=== PATIENT | male | born 1980 | race African-American/Black ===

== ENCOUNTER 2017-10-08 07:04 | Emergency (ER) | payer OTHER ==
[2017-10-08 08:19] LABS: Absolute Lymphocytes (CBC) 1.5 K/uL (0.7-4.9); Absolute Monocytes 0.4 K/uL (0.1-1.3); Basophils % 0.8 % (0-1.3); Hematocrit 43.9 % (39.6-49.0); Lymphocytes % 30.8 % (15.3-44.8); MCH 30.3 pg (27.0-35.0); MCV 92.2 fL (80-100); MPV 6.8 fL (7.6-11.3); Monocytes % 7.5 % (3.3-12.3); RBC Red Blood Cell Count 4.76 M/uL (4.33-5.43)
[2017-10-08 08:32] LABS: Protime INR 0.9
[2017-10-08 08:33] LABS: Bicarbonate 26 mEq/L (21-31); Glucose Level 109 mg/dL (65-120); Potassium 3.8 mEq/L (3.6-5.0); Sodium Level 139 mEq/L (135-145)
[2017-10-08 08:39] LABS: ALT/SGPT 45 IU/L (10-60); AST/SGOT 33 IU/L (10-42); Albumin 4.2 g/dL (3.2-5.5); Alkaline Phosphatase 71 IU/L (42-121); BUN Blood Urea Nitrogen 14 mg/dL (6-20); Bilirubin Direct 0.1 mg/dL (0-0.2); Bilirubin Total 0.4 mg/dL (0.3-1.2); Glomerular Filtration Rate 85 mL/min (=/>90); Protein, Total 7.1 g/dL (6.0-8.3)
[2017-10-08 08:48] LABS: Alcohol Serum/Plasma < 10 mg/dl; Salicylates Level < 4.0 mg/dl (<30)
[2017-10-08 11:36] LABS: Barbiturates NEGATIVE; Benzodiazepines NEGATIVE; Cocaine NEGATIVE; METHAMPHETAM NEGATIVE; Opiates NEGATIVE; Phencyclidine NEGATIVE; THC Cannibis NEGATIVE
[2017-10-08 11:59] LABS: Urine Blood TRACE (NEG); Urine Glucose NEGATIVE (NEG); Urine Protein NEGATIVE (NEG); Urine Specific Gravity 1.015 (1.005-1.030)
--- NOTE | 2017-10-08 16:27 | EKG ---
Test Date: 2017-10-08 Test Time: 08:31:35 Timing Inspector: TEOFILO MEASUREMENT RESULTS: Intervals: Rate: 53 NM: 124 QRSD: 86 QT: 396 QTc: 371 [place]more: P: 54 NM: 124 QRS: 57 T: 52 INTERPRETIVE STATEMENTS: Sinus bradycardia Otherwise normal ECG No previous ECG available for comparison Electronically Signed On 10-08-17 16:24:57 CDT by Doe Mcintyre
--- NOTE | 2017-10-08 17:51 | ER ---
Nurse's Notes [facility] Name: Anupam Alejo Age: 36 yrs Sex: Male : 1980 Arrival Date: 10/08/2017 Time: 07:06 Bed 5 Private MD: Diagnosis: Suicidal ideations Presentation: 10/08 07:12 Presenting complaint: Patient states: "I've been going through too much for about a lk1 month. 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 My has MS. I had to uproot my life from [place], [place]. [facility]. I feel like since no one can help me, I should give up. I had a good life before CPS took my kids and I don't know how to help my . I need some real help." Denies attempts. States he will hang himself or jump off something high. Transition of care: patient was not received from another setting of care. Onset of symptoms was September 10, 2017. Care prior to arrival: None. 07:12 Method Of Arrival: Ambulatory lk1 07:12 Acuity: DARLYN 2 lk1 Triage Assessment: 07:17 General: Appears in no apparent distress. Behavior is calm, cooperative, appropriate lk1 for age. Pain: Complains of pain in "all over" Pain currently is 10 out of 10 on a pain scale. Historical: - Allergies: 07:17 No Known Allergies; lk1 - PMHx: 07:17 PTSD; Chronic pain; lk1 - PSHx: 07:17 None; lk1 - Immunization history:: Adult Immunizations up to date. - Social history:: Smoking status: Patient/guardian denies using tobacco, Patient/guardian denies using alcohol, street drugs. - Family history:: not pertinent. - Hospitalizations: : No recent hospitalization is reported. Screenin:34 Abuse screen: Denies threats or abuse. Denies injuries from another. Nutritional sg screening: No deficits noted. Tuberculosis screening: No symptoms or risk factors identified. Never had TB. Fall Risk None identified. Assessment: 07:30 General: Appears in no apparent distress. well groomed, well developed, well nourished, sg Behavior is calm, cooperative, appropriate for age. Pain: Denies pain. Neuro: Level of Consciousness is awake, alert, obeys commands, Oriented to person, place, time, Mobile Unit Assistant are equal bilaterally Moves all extremities. Full function Speech is normal, Facial symmetry appears normal, Pupils are PERRLA. Cardiovascular: Heart tones S1 S2 present Capillary refill is brisk in bilateral fingers Patient's skin is warm and dry. Chest pain is denied. Respiratory: Airway is patent Respiratory effort is even, unlabored, Respiratory pattern is regular, symmetrical, Breath sounds are clear Denies cough, labored breathing, pain with respiration. GI: No signs and/or symptoms were reported involving the gastrointestinal system. : No signs and/or symptoms were reported regarding the genitourinary system. EENT: No signs and/or symptoms were reported regarding the EENT system. Derm: Skin is intact, is healthy with good turgor, Skin is dry, Skin is normal, Skin temperature is warm. Musculoskeletal: No signs and/or symptoms reported regarding the musculoskeletal system. 08:30 Reassessment: Patient appears in no apparent distress at this time. Patient and/or sg family updated on plan of care and expected duration. Pain level reassessed. pt laying left side lying position with knees to chest, pt remains covered, resp even unlabored, srx2, bed in low and locked position, door remains open and a sitter remains with the patient. 09:30 Reassessment: Patient appears in no apparent distress at this time. Patient and/or sg family updated on plan of care and expected duration. Pain level reassessed. pt lying right side, remains covered at this time, eyes closed, resp even and unlabored, no s/s of distress noted, pt awakens easily to verbal stimuli, awaiting new orders at this time, a sitter remains with the pt, will continue to monitor. 12:10 Reassessment: Patient appears in no apparent distress at this time. Patient and/or sg family updated on plan of care and expected duration. Pain level reassessed. pt sitting upright in bed at this time, awaiting a sandwich to be delivered from the cafeteria at this time d/t not liking the tray that was offered, pt cooperative, calm at this time, awaiting new orders, a sitter remains with the pt. 12:30 Reassessment: Patient appears in no apparent distress at this time. Patient and/or sg family updated on plan of care and expected duration. Pain level reassessed. no new orders received at this time, awaiting sandwich to be delivered from dietary at this time. 13:30 Reassessment: Patient appears in no apparent distress at this time. Patient and/or sg family updated on plan of care and expected duration. Pain level reassessed. Patient is alert, oriented x 3, equal unlabored respirations, skin warm/dry/pink. pt eating sandwich, is thankful at this time, sitter remains with pt, pt ambulated to the ER restroom at this time, no problems encountered pt assisted back to bed, will continue to monitor Patient states symptoms have not improved. 14:30 Reassessment: Patient appears in no apparent distress at this time. Patient and/or sg family updated on plan of care and expected duration. Pain level reassessed. Patient is alert, oriented x 3, equal unlabored respirations, skin warm/dry/pink. pt requesting update on POC, updated on pt transfer status, pt stated understanding, will continue to monitor Patient states symptoms have not improved. 17:06 Reassessment: Patient appears in no apparent distress at this time. Patient and/or sg family updated on plan of care and expected duration. Pain level reassessed. Patient is alert, oriented x 3, equal unlabored respirations, skin warm/dry/pink. pt given a regular diet tray at this time, pt tolerated well, no assistance required at this time, will continue to monitor. 18:00 Reassessment: Pt laying in bed with eyes closed, respirations even and unlabored, no jl7 signs of distress noted. 19:00 Reassessment: Patient appears in no apparent distress at this time. Patient and/or jd3 family updated on plan of care and expected duration. Pain level reassessed. Patient is alert, oriented x 3, equal unlabored respirations, skin warm/dry/pink. 20:02 Reassessment: Patient appears in no apparent distress at this time. Patient and/or jd3 family updated on plan of care and expected duration. Pain level reassessed. Patient is alert, oriented x 3, equal unlabored respirations, skin warm/dry/pink. 20:56 Reassessment: [facility] in [facility] , Rigoberto MARIEE received report. ao 21:43 Reassessment: Patient appears in no apparent distress at this time. Patient and/or jd3 family updated on plan of care and expected duration. Pain level reassessed. Patient is alert, oriented x 3, equal unlabored respirations, skin warm/dry/pink. 21:59 Reassessment: Patient appears in no apparent distress at this time. Patient and/or jd3 family updated on plan of care and expected duration. Pain level reassessed. Patient is alert, oriented x 3, equal unlabored respirations, skin warm/dry/pink. report given to SUSIE. Psych: 07:15 Subjective: Patient's mood is angry, hopeless, Delusions are denied, Hallucinations are sg denied Having thoughts of suicide. Plan for suicide is to jump from a really high place, or to hang himself. Objective: Patient is cooperative, Speech is normal, Affect is appropriate. Interventions: Removed personal items and placed in bag. Patient placed in hospital gown. Suicide Risk Assessment: Sad Person Scale: Sex of patient: Male: Score 1 point. Age of patient: Score 0 point if patient falls outside of specified age parameters. Depression: Score 1 point if signs of depression are present. Previous Attempt: Score 0 point if patient has not previously attempted suicide. Substance Abuse: Score 0 point if patient does not abuse alcohol or drugs. Rational Thinking: Score 0 point if patient has rational thinking. Social Support: Score 0 if social support is present/available. Organized Plan: Score 1 point if patient had a plan in place. Relationship: Score 0 point if patient has a spouse or domestic partner. Chronic Sickness: Score 1 point if patient has illness, chronic, debilitating, or severe. TOTAL POINTS: If total points are 3-4, proposed clinical action is close follow-up/consider hospitalization. Safety Checks: Personal items have been removed. Door is open. No visitors are present at this time. sitter remains in room with patient. Pt denies substance abuse. 21:59 Commitment: Patient will be a voluntary commitment. Commitment papers completed. jd3 Vital Signs: 07:17 BP 129 / 87; Pulse 69; Resp 14; Temp 97.3(TE); Pulse Ox 99% on R/A; Weight 79.38 kg lk1 (R); Height 5 ft. 11 in. (180.34 cm) (R); Pain 10/10; 09:08 BP 120 / 87; Pulse 66; Resp 16; Pulse Ox 99% on R/A; Pain 10/10; sg 12:30 BP 118 / 77; Pulse 59; Resp 16; Pulse Ox 100% on R/A; sg 14:30 BP 120 / 72; Pulse 60; Resp 14 S; Pulse Ox 99% on R/A; sg 20:01 BP 119 / 84; Pulse 71; Resp 18 S; Pulse Ox 99% on R/A; jd3 21:57 BP 119 / 82; Pulse 63; Resp 17 S; Pulse Ox 98% on R/A; jd3 07:17 Body Mass Index 24.41 (79.38 kg, 180.34 cm) lk1 09:08 pain that is chronic, per the patient sg ED Course: 07:06 Patient arrived in ED. ds1 07:15 Safety Checks: Personal items have been removed The door is open or patient has been sg placed in a hallway bed/chair. There are no family/friend visitors at this time. 07:16 Triage completed. lk1 07:19 Arm band placed on right wrist. lk1 07:21 Jake Ortega MD is Attending Physician. rn 07:30 Safety Checks: Personal items have been removed The door is open or patient has been sg placed in a hallway bed/chair. There are no family/friend visitors at this time. 07:30 Patient has correct armband on for positive identification. Bed in low position. Call jl7 light in reach. Side rails up X 1. Warm blanket given. 07:40 Initial lab(s) drawn, by ED staff, sent to lab. awaiting a urine specimen at this time. sg Inserted saline lock: 20 gauge in right antecubital area, using aseptic technique. Blood collected. IV inserted by biomass plant technician Cash. Patient maintains SpO2 saturation greater than 95% on room air. 07:45 Safety Checks: Personal items have been removed The door is open or patient has been sg placed in a hallway bed/chair. There are no family/friend visitors at this time. 08:00 Safety Checks: Personal items have been removed The door is open or patient has been sg placed in a hallway bed/chair. There are no family/friend visitors at this time. 08:15 Safety Checks: Personal items have been removed The door is open or patient has been sg placed in a hallway bed/chair. There are no family/friend visitors at this time. 08:26 Feng Escamilla, RN is Primary Nurse. sg 08:30 Safety Checks: Personal items have been removed The door is open or patient has been sg placed in a hallway bed/chair. There are no family/friend visitors at this time. 08:45 Safety Checks: Personal items have been removed The door is open or patient has been sg placed in a hallway bed/chair. There are no family/friend visitors at this time. 08:46 EKG done, by technical illustrations map inker. reviewed by Jake Ortega MD. tc 09:00 Safety Checks: Personal items have been removed The door is open or patient has been sg placed in a hallway bed/chair. There are no family/friend visitors at this time. 09:15 Safety Checks: Personal items have been removed The door is open or patient has been sg placed in a hallway bed/chair. There are no family/friend visitors at this time. 09:30 Safety Checks: Personal items have been removed The door is open or patient has been sg placed in a hallway bed/chair. There are no family/friend visitors at this time. 09:45 Safety Checks: Personal items have been removed The door is open or patient has been sg placed in a hallway bed/chair. There are no family/friend visitors at this time. 10:00 Safety Checks: Personal items have been removed The door is open or patient has been sg placed in a hallway bed/chair. There are no family/friend visitors at this time. 10:15 Safety Checks: Personal items have been removed The door is open or patient has been sg placed in a hallway bed/chair. There are no family/friend visitors at this time. 10:30 Safety Checks: Personal items have been removed The door is open or patient has been sg placed in a hallway bed/chair. There are no family/friend visitors at this time. 10:45 Safety Checks: Personal items have been removed The door is open or patient has been sg placed in a hallway bed/chair. There are no family/friend visitors at this time. 11:00 Safety Checks: Personal items have been removed The door is open or patient has been sg placed in a hallway bed/chair. There are no family/friend visitors at this time. 11:15 Safety Checks: Personal items have been removed The door is open or patient has been sg placed in a hallway bed/chair. There are no family/friend visitors at this time. 11:30 Safety Checks: Personal items have been removed The door is open or patient has been sg placed in a hallway bed/chair. There are no family/friend visitors at this time. 11:45 Safety Checks: Personal items have been removed The door is open or patient has been sg placed in a hallway bed/chair. There are no family/friend visitors at this time. 12:00 Safety Checks: Personal items have been removed The door is open or patient has been sg placed in a hallway bed/chair. There are no family/friend visitors at this time. 12:15 Safety Checks: Personal items have been removed The door is open or patient has been sg placed in a hallway bed/chair. There are no family/friend visitors at this time. 12:30 Safety Checks: Personal items have been removed The door is open or patient has been sg placed in a hallway bed/chair. There are no family/friend visitors at this time. 12:45 Safety Checks: Personal items have been removed The door is open or patient has been sg placed in a hallway bed/chair. There are no family/friend visitors at this time. 13:00 Safety Checks: Personal items have been removed The door is open or patient has been sg placed in a hallway bed/chair. There are no family/friend visitors at this time. 13:15 Safety Checks: Personal items have been removed The door is open or patient has been sg placed in a hallway bed/chair. There are no family/friend visitors at this time. 13:30 Safety Checks: Personal items have been removed The door is open or patient has been sg placed in a hallway bed/chair. There are no family/friend visitors at this time. 13:45 Safety Checks: Personal items have been removed The door is open or patient has been sg placed in a hallway bed/chair. There are no family/friend visitors at this time. 14:00 Safety Checks: Personal items have been removed The door is open or patient has been sg placed in a hallway bed/chair. There are no family/friend visitors at this time. 14:15 Safety Checks: Personal items have been removed The door is open or patient has been sg placed in a hallway bed/chair. There are no family/friend visitors at this time. 14:30 Safety Checks: Personal items have been removed The door is open or patient has been sg placed in a hallway bed/chair. There are no family/friend visitors at this time. 14:45 Safety Checks: Personal items have been removed The door is open or patient has been sg placed in a hallway bed/chair. There are no family/friend visitors at this time. 15:00 Safety Checks: Personal items have been removed The door is open or patient has been sg placed in a hallway bed/chair. There are no family/friend visitors at this time. 15:15 Safety Checks: Personal items have been removed The door is open or patient has been sg placed in a hallway bed/chair. There are no family/friend visitors at this time. 15:30 Safety Checks: Personal items have been removed The door is open or patient has been sg placed in a hallway bed/chair. There are no family/friend visitors at this time. 15:45 Safety Checks: Personal items have been removed The door is open or patient has been sg placed in a hallway bed/chair. There are no family/friend visitors at this time. 16:00 Safety Checks: Personal items have been removed The door is open or patient has been sg placed in a hallway bed/chair. There are no family/friend visitors at this time. 16:15 Safety Checks: Personal items have been removed The door is open or patient has been sg placed in a hallway bed/chair. There are no family/friend visitors at this time. 16:30 Safety Checks: Personal items have been removed The door is open or patient has been sg placed in a hallway bed/chair. There are no family/friend visitors at this time. 16:45 Safety Checks: Personal items have been removed The door is open or patient has been sg placed in a hallway bed/chair. There are no family/friend visitors at this time. 17:00 Safety Checks: Personal items have been removed The door is open or patient has been sg placed in a hallway bed/chair. There are no family/friend visitors at this time. 17:15 Safety Checks: Personal items have been removed The door is open or patient has been sg placed in a hallway bed/chair. There are no family/friend visitors at this time. 17:30 Safety Checks: Personal items have been removed The door is open or patient has been jl7 placed in a hallway bed/chair. There are no family/friend visitors at this time. 17:45 Safety Checks: Personal items have been removed The door is open or patient has been jl7 placed in a hallway bed/chair. There are no family/friend visitors at this time. 18:00 Safety Checks: Personal items have been removed The door is open or patient has been jl7 placed in a hallway bed/chair. There are no family/friend visitors at this time. 18:15 Safety Checks: Personal items have been removed The door is open or patient has been jl7 placed in a hallway bed/chair. There are no family/friend visitors at this time. 18:30 Safety Checks: Personal items have been removed The door is open or patient has been jl7 placed in a hallway bed/chair. There are no family/friend visitors at this time. 18:45 Safety Checks: Personal items have been removed The door is open or patient has been jl7 placed in a hallway bed/chair. There are no family/friend visitors at this time. 19:00 Safety Checks: Personal items have been removed The door is open or patient has been jd3 placed in a hallway bed/chair. There are no family/friend visitors at this time. 19:15 Safety Checks: Personal items have been removed The door is open or patient has been jd3 placed in a hallway bed/chair. There are no family/friend visitors at this time. 19:21 Attending Physician role handed off by Jake Ortega MD [facility] 19:21 Aaron Puente MD is Attending Physician. kdr 19:30 Safety Checks: Personal items have been removed The door is open or patient has been jd3 placed in a hallway bed/chair. There are no family/friend visitors at this time. 19:45 Safety Checks: Personal items have been removed The door is open or patient has been jd3 placed in a hallway bed/chair. There are no family/friend visitors at this time. 19:53 Julio Rodriguez RN is Primary Nurse. jd3 19:55 Lights dimmed. jd3 20:00 Safety Checks: Personal items have been removed The door is open or patient has been jd3 placed in a hallway bed/chair. There are no family/friend visitors at this time. 20:15 Safety Checks: Personal items have been removed The door is open or patient has been jd3 placed in a hallway bed/chair. There are no family/friend visitors at this time. 20:30 Safety Checks: Personal items have been removed The door is open or patient has been jd3 placed in a hallway bed/chair. There are no family/friend visitors at this time. 20:45 Safety Checks: Personal items have been removed The door is open or patient has been jd3 placed in a hallway bed/chair. There are no family/friend visitors at this time. 21:00 Safety Checks: Personal items have been removed The door is open or patient has been jd3 placed in a hallway bed/chair. There are no family/friend visitors at this time. 21:15 Safety Checks: Personal items have been removed The door is open or patient has been jd3 placed in a hallway bed/chair. There are no family/friend visitors at this time. 21:30 Safety Checks: Personal items have been removed The door is open or patient has been jd3 placed in a hallway bed/chair. There are no family/friend visitors at this time. 21:45 Safety Checks: Personal items have been removed The door is open or patient has been jd3 placed in a hallway bed/chair. There are no family/friend visitors at this time. 21:59 No provider procedures requiring assistance completed. IV discontinued, intact, jd3 bleeding controlled, No redness/swelling at site. Pressure dressing applied. Administered Medications: No medications were administered Outcome: 17:50 ER care complete, transfer ordered by . rn 22:02 Condition: stable jd3 22:03 Transferred by ground EMS Transfer form completed. Note: transferred to [address] 22:03 Instructed on the need for transfer, Demonstrated understanding of instructions. 22:06 Patient left the ED. j Signatures: Feng Escamilla RN RN sg Rittger, Kevin, MD MD kdr Sanford, Demi ds1 Jake Ortega MD MD rn Callis, Tiffany, terrazzo mechanic helper EKG Ttc Araceli Gee RN RN lk1 Jaden Dewitt RN RN ao Leal, Jahala, RN RN jl7 Julio Rodriguez RN RN jd3 Corrections: (The following items were deleted from the chart) 21:56 21:43 Reassessment: Patient appears in no apparent distress at this time. Patient jd3 and/or family updated on plan of care and expected duration. Pain level reassessed. Patient is alert, oriented x 3, equal unlabored respirations, skin warm/dry/pink. jd3
--- NOTE | 2017-10-08 17:51 | EDPHYS ---
Physician Documentation [facility] Name: Anupam Alejo Age: 36 yrs Sex: Male : 1980 Arrival Date: 10/08/2017 Time: 07:06 Bed 5 Private MD: ED Physician Aaron Puente HPI: 10/08 08:00 This 36 yrs old Black Male presents to ER via Ambulatory with complaints of Suicidal rn Ideation. 08:00 The patient presents to the emergency department with depression, suicide ideation. rn Onset: The symptoms/episode began/occurred at an unknown time. Associated signs and symptoms: Pertinent positives; depression, suicide ideation. Severity of symptoms: At their worst the symptoms were moderate in the emergency department the symptoms are unchanged. It is unknown whether or not the patient has had similar symptoms in the past. Reports suicidal ideation since CPS took away his kids, thoughts of jumping off of "something high", no ingestion, no drug/ETOH use, reports uncle driving him around [place] yesterday, states went to [place] and told couldn't help him, no previous suicide attempt.. Historical: - Allergies: 07:17 No Known Allergies; lk1 - PMHx: 07:17 PTSD; Chronic pain; lk1 - PSHx: 07:17 None; lk1 - Immunization history:: Adult Immunizations up to date. - Social history:: Smoking status: Patient/guardian denies using tobacco, Patient/guardian denies using alcohol, street drugs. - Family history:: not pertinent. - Hospitalizations: : No recent hospitalization is reported. ROS: 08:00 Constitutional: Negative for fever, chills, and weight loss, Eyes: Negative for injury, rn pain, redness, and discharge, Neck: Negative for injury, pain, and swelling, Cardiovascular: Negative for chest pain, palpitations, and edema, Respiratory: Negative for shortness of breath, cough, wheezing, and pleuritic chest pain, Abdomen/GI: Negative for abdominal pain, nausea, vomiting, diarrhea, and constipation, Back: Negative for injury and pain, MS/Extremity: Negative for injury and deformity, Skin: Negative for injury, rash, and discoloration, Neuro: Negative for headache, weakness, numbness, tingling, and seizure. Exam: 08:00 Constitutional: This is a well developed, well nourished patient who is awake, alert, rn and in no acute distress. Head/Face: Normocephalic, atraumatic. Eyes: Pupils equal round and reactive to light, extra-ocular motions intact. Lids and lashes normal. Conjunctiva and sclera are non-icteric and not injected. Cornea within normal limits. Periorbital areas with no swelling, redness, or edema. Cardiovascular: Regular rate and rhythm with a normal S1 and S2. No gallops, murmurs, or rubs. Normal PMI, no JVD. No pulse deficits. Respiratory: Lungs have equal breath sounds bilaterally, clear to auscultation and percussion. No rales, rhonchi or wheezes noted. No increased work of breathing, no retractions or nasal flaring. Abdomen/GI: Soft, non-tender, with normal bowel sounds. No distension or tympany. No guarding or rebound. No evidence of tenderness throughout. MS/ Extremity: Pulses equal, no cyanosis. Neurovascular intact. Full, normal range of motion. Equal circumference. Neuro: Awake and alert, GCS 15, oriented to person, place, time, and situation. Cranial nerves II-XII grossly intact. Motor strength 5/5 in all extremities. Sensory grossly intact. Cerebellar exam normal. Normal gait. Psych: Awake, alert, appears agitated, frustrated. 09:36 ECG was reviewed by the Attending Physician. rn Vital Signs: 07:17 BP 129 / 87; Pulse 69; Resp 14; Temp 97.3(TE); Pulse Ox 99% on R/A; Weight 79.38 kg lk1 (R); Height 5 ft. 11 in. (180.34 cm) (R); Pain 10/10; 09:08 BP 120 / 87; Pulse 66; Resp 16; Pulse Ox 99% on R/A; Pain 10/10; sg 12:30 BP 118 / 77; Pulse 59; Resp 16; Pulse Ox 100% on R/A; sg 14:30 BP 120 / 72; Pulse 60; Resp 14 S; Pulse Ox 99% on R/A; sg 20:01 BP 119 / 84; Pulse 71; Resp 18 S; Pulse Ox 99% on R/A; jd3 21:57 BP 119 / 82; Pulse 63; Resp 17 S; Pulse Ox 98% on R/A; jd3 07:17 Body Mass Index 24.41 (79.38 kg, 180.34 cm) lk1 09:08 pain that is chronic, per the patient sg MDM: 07:21 Patient medically screened. rn 17:49 Differential diagnosis: depression. Data reviewed: vital signs, nurses notes, lab test rn result(s), EKG, and as a result, I will admit patient. Counseling: I had a detailed discussion with the patient and/or guardian regarding: the historical points, exam findings, and any diagnostic results supporting the discharge/admit diagnosis, lab results, radiology results, the need to transfer to another facility. ED course: [facility], [facility]. . 10/08 07:27 Order name: Acetaminophen rn 10/08 07:27 Order name: Basic Metabolic Panel rn 10/08 07:27 Order name: CBC with Diff; Complete Time: 09:58 rn 10/08 07:27 Order name: ETOH Level rn 10/08 07:27 Order name: Hepatic Function rn 10/08 07:27 Order name: PT-INR; Complete Time: 09:58 rn 10/08 07:27 Order name: Ptt, Activated; Complete Time: 09:58 rn 10/08 07:27 Order name: Salicylate; Complete Time: 09:58 rn 10/08 07:27 Order name: Urine Drug Screen; Complete Time: 11:37 rn 10/08 07:28 Order name: Acetaminophen Level; Complete Time: 09:58 EDMS 10/08 07:28 Order name: Basic Metabolic Panel; Complete Time: 09:58 EDMS 10/08 07:28 Order name: Alcohol Serum/Plasma; Complete Time: 09:58 EDMS 10/08 07:28 Order name: Liver (Hepatic) Function; Complete Time: 09:58 EDMS 10/08 11:32 Order name: Urine Dipstick--Ancillary (enter results); Complete Time: 21:14 bd 10/08 07:27 Order name: EKG; Complete Time: 07:28 rn 10/08 07:27 Order name: EKG - Nurse/Tech; Complete Time: 08:35 rn 10/08 07:27 Order name: IV Saline Lock; Complete Time: 08:27 rn 10/08 07:27 Order name: Labs collected and sent; Complete Time: 08:27 rn 10/08 07:27 Order name: Urine Dipstick-Ancillary (obtain specimen); Complete Time: 21:00 rn 10/08 10:52 Order name: Diet Regular; Complete Time: 10:53 bd 10/08 10:52 Order name: Diet Regular; Complete Time: 10:53 sg 10/08 16:39 Order name: Diet Regular; Complete Time: 16:39 bd EC:36 Rate is 53 beats/min. Rhythm is regular. QRS [place] is Normal. PA interval is normal. QRS rn interval is normal. QT interval is normal. No Q waves. T waves are Normal. No ST changes noted. Clinical impression: Sinus bradycardia. Interpreted by me. Administered Medications: No medications were administered Disposition: 10/08/17 17:50 Transfer ordered to Psych Facility. Diagnosis is Suicidal ideations. - Reason for transfer: Higher level of care. - Accepting physician is Gio Banuelos. - Condition is Stable. - Problem is an ongoing problem. - Symptoms are unchanged. Signatures: Dispatcher [employer] EDMS Aaron Puente MD MD kdr Nieto, Roman, MD MD rn Kluge, Leah, RN RN lk1 Julio Rodriguez RN RN jd3
== END 2017-10-08 22:06 ==
LOC: ER 07:04
DX: R45.851 Suicidal ideations; F43.10 Post-traumatic stress disorder, unspecified; F32.9 Major depressive disorder, single episode, unspecified
CPT/HCPCS: 36415; 80048; 80076; 80307; 80320; 80329; 81003; 85025; 85610; 85730; 93005; 99285

== ENCOUNTER 2018-05-01 19:48 | Emergency (ER) | payer OTHER ==
--- NOTE | 2018-05-01 20:29 | ER ---
Nurse's Notes [facility] Name: Anupam Alejo Age: 37 yrs Sex: Male : 1980 Arrival Date: 05/01/2018 Time: 19:49 Bed 3 Private MD: Diagnosis: Presentation: 05/01 20:06 Note [address] patient in triage room to evaluated. Patient stated "I'm fixing to kill all aj of you." This nurse felt threatened and attempted to move patient out of triage room to bed three. I mouthed to desk lawyer "code purple" and continued with patient to bed three. Patient continued to scream and proclaim homicidal ideations and claiming to be God. Patient asked his name by Toni Larose and stated that he was leaving, and patient exited room to lobby yelling incoherently. 20:27 Note [place] [employer] informed of patient's threats to staff. Stated concerns for my aj safety if patient returns. Officer asked staff to call PD if patient returns. Assessment: 20:05 Reassessment: pt yelling at hospital staff claiming to want to hurt others. PD jd3 notified. General: Behavior is agitated, combative, pt states "Racism is still here! 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 this country has says it hates god. y"all took all my money and don't really want to help me. I am god, and my power is about to activate, and I am about to start taking people and sending them to hell.". 20:08 Reassessment: pt decided he didn't want help. eloped after provider asked what we could jd3 help with. ED Course: 19:49 Patient arrived in ED. mr 20:07 Julio Rodriguez, RN is Primary Nurse. jd3 20:29 Simon Marin MD is Attending Physician. aj Administered Medications: No medications were administered Outcome: 20:29 Patient left the ED. aj Signatures: Maranda Wilson, RN Rosa Figueroa mr Julio Rodriguez, RN RN dennis
== END 2018-05-01 20:29 | disposition left against medical advice (07) ==
LOC: ER 19:48
DX: R45.1 Restlessness and agitation (principal)
CPT/HCPCS: 99284

== ENCOUNTER 2021-03-27 16:48 | Emergency (ER) | payer OTHER ==
[2021-03-27] MEDS ORDERED: ACETAMINOPHEN 500 MG TAB ONE (18:07)
--- NOTE | 2021-03-27 18:31 | ER ---
Nurse's Notes [facility] Name: Anupam Alejo Age: 40 yrs Sex: Male : 1980 Arrival Date: 03/27/2021 Time: 16:52 Bed Waiting Private MD: Diagnosis: Presentation: 03/27 17:35 Chief complaint: Patient states: Chills, body aches, back, diarrhea x 3 days. kg Coronavirus screen: Vaccine status: Patient reports being unvaccinated. chills, diarrhea, headache, muscle pain, nausea, Client presents with at least one sign or symptom that may indicate coronavirus-19. Standard/surgical mask placed on the client. Provider contacted for isolation considerations. Ebola Screen: Patient negative for fever greater than or equal to 101.5 degrees Fahrenheit, and additional compatible Ebola Virus Disease symptoms Patient denies exposure to infectious person. Patient denies travel to an Ebola-affected area in the 21 days before illness onset. Initial Sepsis Screen: Does the patient meet any 2 criteria? No. Patient's initial sepsis screen is negative. Does the patient have a suspected source of infection? No. Patient's initial sepsis screen is negative. Risk Assessment: Do you want to hurt yourself or someone else? Patient reports no desire to harm self or others. Onset of symptoms was March 24, 2021. 17:35 Method Of Arrival: Ambulatory kg 17:35 Acuity: DARLYN 4 kg Triage Assessment: 17:37 General: Appears uncomfortable, Behavior is anxious, restless. Pain: Complains of pain kg in Generalized Pain currently is 10 out of 10 on a pain scale. at worst was 10 out of 10 on a pain scale. level that patient reports is acceptable is 3 out of 10 on a pain scale. Quality of pain is described as aching. 17:39 GI: Reports diarrhea, nausea. Musculoskeletal: Reports pain in Generalized. kg Historical: - Allergies: 17:37 No Known Allergies; kg - Home Meds: 17:37 None [Active]; kg - PMHx: 17:37 Chronic pain; PTSD; kg - PSHx: 17:37 None; kg - Immunization history:: Adult Immunizations not up to date, Client reports having NOT received the Covid vaccine. - Social history:: Smoking status: Patient denies any tobacco usage or history of. Screenin:38 Abuse screen: Denies threats or abuse. Denies injuries from another. Nutritional kg screening: No deficits noted. Tuberculosis screening: No symptoms or risk factors identified. Fall Risk None identified. Assessment: 17:39 Neuro: Level of Consciousness is awake, alert, obeys commands, Oriented to person, kg place, time, situation, Appropriate for age. Vital Signs: 17:35 BP 147 / 51; Pulse 90; Resp 20; Temp 102.4(O); Pulse Ox 100% on R/A; Weight 92.99 kg kg (R); Height 5 ft. 11 in. (180.34 cm); Pain 10/10; 17:35 Body Mass Index 28.59 (92.99 kg, 180.34 cm) kg ED Course: 16:52 Patient arrived in ED. am2 17:37 Triage completed. kg 17:38 Patient has correct armband on for positive identification. kg 17:38 No provider procedures requiring assistance completed. kg 18:30 Jake Oretga MD is Attending Physician. aa5 Administered Medications: 18:00 Drug: Tylenol 1000 mg Route: PO; kg Outcome: 18:30 Patient left the ED. aa5 Signatures: Rebecca Duong, RN RN aa5 Maranda Blackwood am2 Sahra Kumar, RN RN kg
[2021-03-27 18:45] VITALS: BP 147/51; TEMP 102.4; O2SAT 100
== END 2021-03-27 18:30 | disposition left against medical advice (07) ==
LOC: ER 16:48
DX: Z53.21 Procedure and treatment not carried out due to patient leaving prior to being seen by health care provider (principal)
CPT/HCPCS: 99282